=== PATIENT | female | born 1995 | race Two or more races ===

== ENCOUNTER 2021-11-11 08:12 | Observation (INO) | payer OTHER ==
[~2021-11-11] VITALS: Ht 157.5 cm; Wt 83.9 kg
== END 2021-11-11 11:48 | disposition home or self-care (01) ==
LOC: LDRP 08:12
PROVIDERS: ADMIT Obstetrics & Gynecology; ATTEND Obstetrics & Gynecology
DX: O99.333 Smoking (tobacco) complicating pregnancy, third trimester (principal); F17.200 Nicotine dependence, unspecified, uncomplicated; O09.33 Supervision of pregnancy with insufficient antenatal care, third trimester; Z3A.39 39 weeks gestation of pregnancy
CPT/HCPCS: 59025; 76818; 81002; 94760; G0378

== ENCOUNTER 2021-11-13 22:11 | Observation (INO) | payer SELFPAY ==
[~2021-11-13] VITALS: Ht 157.5 cm; Wt 98.0 kg
== END 2021-11-14 00:29 | disposition home or self-care (01) ==
LOC: LDRP 22:11
PROVIDERS: ADMIT Obstetrics & Gynecology Obstetrics; ATTEND Obstetrics & Gynecology Obstetrics
DX: O62.9 Abnormality of forces of labor, unspecified (principal); Z20.822 Contact with and (suspected) exposure to COVID-19; O26.893 Other specified pregnancy related conditions, third trimester; N89.8 Other specified noninflammatory disorders of vagina; O99.333 Smoking (tobacco) complicating pregnancy, third trimester; F17.210 Nicotine dependence, cigarettes, uncomplicated; Z3A.39 39 weeks gestation of pregnancy
CPT/HCPCS: 59025; 81002; G0378

== ENCOUNTER 2021-11-14 15:18 | Inpatient (IN) | payer SELFPAY ==
[~2021-11-14] VITALS: Ht 157.5 cm; Wt 98.0 kg
[2021-11-14] MEDS ORDERED: PROMETHAZINE HCL 25 MG/ML 1ML IV PRN (17:15)
[2021-11-14] MEDS ORDERED: LIDOCAINE 2%HCL (LOCAL ANESTH.) INJ 10ml MDV IJ PRN (17:15)
[2021-11-14] MEDS ORDERED: BUTORPHANOL TARTRATE 2 MG/1 ML VIAL IV PRN ×2 (17:15)
[2021-11-14] MEDS ORDERED: LACTATED RINGER'S 1,000 ML IV SCH (17:15)
[2021-11-14] MEDS ORDERED: LACT. RINGERS/OXYTOCIN 20UNITS 500 ML IV ONE ×2 (17:15→17:45)
[2021-11-14] MEDS: PHISODERM TOP SOLN 240ML BTL TOP PRN (18:03)
[2021-11-14] MEDS: DERMOPLAST 60ML BOTTLE TOP PRN (18:03)
[2021-11-14] MEDS: WITCH HAZEL-GLYCERIN PAD TOP PRN (18:03)
[2021-11-14] MEDS ORDERED: LIDOCAINE 2%HCL (LOCAL ANESTH.) INJ 20ML MDV ONE (18:06)
[2021-11-14 18:14] LABS: Alcohol, Urine < 3.0 mg/dL (0-10); Amphetamine Screen, Urine NEGATIVE (NEGATIVE); Barbiturate Scree,Urine NEGATIVE (NEGATIVE); Benzodiazephine Screen, Urine NEGATIVE (NEGATIVE); Cannabinoid Screen, Urine NEGATIVE (NEGATIVE); Cocaine Screen, Urine NEGATIVE (NEGATIVE); Opiate Scree,Urine NEGATIVE (NEGATIVE); Phencyclidine Screen, Urine NEGATIVE (NEGATIVE); Urine Bacteria FEW /hpf (None Seen); Urine Blood Negative /uL (Negative); Urine Specific Gravity 1.003 (1.001-1.035); Urine WBC <1 /hpf (0 - 5)
[2021-11-14 18:15] LABS: Basophils # (auto) 0.1 10 ^3/uL (0-0.2); Basophils % (auto) 0.4 % (0.0-2.0); Eosinophils # (auto) 0.1 10 ^3/uL (0-0.8); Eosinophils % (auto) 0.7 % (0.0-7.0); Hematocrit 33.8 % (36.0-46.0); Hemoglobin 11.4 g/dL (12.2-16.2); Lymphocytes # (auto) 1.7 10 ^3/uL (0.4-5.4); Lymphocytes % (auto) 11.5 % (10.0-50.0); Mean Corpuscular Hemoglobin 29.6 pg (28.0-32.0); Mean Corpuscular Hgb Conc. 33.9 g/dL (32.0-36.0); Mean Corpuscular Volume 87.3 fL (80.0-100.0); Monocytes # (auto) 0.8 10 ^3/uL (0-1.3); Monocytes % (auto) 5.1 % (0.0-12.0); Neutrophils # (auto) 12.5 10 ^3/uL (1.6-8.6); Neutrophils % (auto) 82.3 % (37.0-80.0); Red Blood Cells 3.87 10^6/uL (4.0-5.20); Red Cell Distribution Width 12.4 % (11.8-14.3); White Blood Cell 15.2 10^3/uL (4.4-10.8)
[2021-11-14 18:36] LABS: INR 0.92 (0.9-1.15); Partial Thromboplastin Time 26.2 sec (24.6-33.4)
[2021-11-14 18:46] LABS: Albumin 2.6 g/dL (3.4-5.0); Calcium 9.1 mg/dL (8.5-10.1); Potassium 3.7 mmol/L (3.5-5.1)
[2021-11-14 18:50] LABS: BUN/Creatinine Ratio 13.5; Bilirubin, Total 0.5 mg/dL (0.2-1.0); Total Protein 7.1 g/dL (6.4-8.2)
[2021-11-14] MEDS ORDERED: fentaNYL CITRATE 100 MCG/2 ML VL IV ONE (19:30)
[2021-11-14] MEDS ORDERED: NALOXONE HCL 0.4 MG/ML VIAL IV ONE (19:30)
[2021-11-14] MEDS ORDERED: ePHEDrine SULFATE 50 MG/ML AMP IV ONE (19:30)
[2021-11-14] MEDS ORDERED: LIDOCAINE HCL 2 %PF INJ 10ML AMP IJ ONE (19:30)
[2021-11-14] MEDS ORDERED: ROPIVACAINE HCL 200 ML EPI SCH ×2 (19:30→20:45)
[2021-11-14] MEDS ORDERED: OXYTOCIN 20 UNT in SODIUM CHLORIDE 0.9% 1,000 ML IV ONE (21:00)
[2021-11-14] MEDS ORDERED: LACT. RINGERS/OXYTOCIN 20UNITS 1,000 ML IV SCH (22:15)
[2021-11-14] MEDS ORDERED: TERBUTALINE SULFATE 1 MG/ML 1ML VIAL SC PRN (22:15)
[2021-11-15] MEDS ORDERED: ONDANSETRON ODT 4 MG TAB PO PRN (00:45)
[2021-11-15] MEDS ORDERED: ACETAMINOPHEN 325 MG TAB PO PRN (00:45)
[2021-11-15 03:00] VITALS: BP 124/77
[2021-11-15 06:06] LABS: RPR Non Reactive (Non Reactive)
[2021-11-15 07:00] VITALS: BP 115/68
[2021-11-15] MEDS: IBUPROFEN 600 MG TAB PO PRN ×3 (08:06→22:38)
[2021-11-15 10:57] VITALS: BP 104/59
[2021-11-15 15:23] VITALS: BP 106/61
[2021-11-15 19:30] VITALS: BP 100/66
[2021-11-15] MEDS ORDERED: DOCUSATE SOD 100 MG CAP PO SCH (22:00)
[2021-11-15 22:53] VITALS: BP 108/68
[2021-11-16 03:00] VITALS: BP 87/50
[2021-11-16 06:00] VITALS: BP 105/65
[2021-11-16 07:00] VITALS: BP 105/78
[2021-11-16] MEDS: PHISODERM TOP SOLN 240ML BTL TOP PRN (07:15)
[2021-11-16] MEDS: WITCH HAZEL-GLYCERIN PAD TOP PRN (07:15)
[2021-11-16] MEDS: IBUPROFEN 600 MG TAB PO PRN (07:15)
[2021-11-16] MEDS: DERMOPLAST 60ML BOTTLE TOP PRN (07:15)
== END 2021-11-16 10:37 | disposition home or self-care (01) | DRG 807 ==
LOC: LDRP 15:18 → OBSVTOIN 17:06 → LDRP 17:10
PROVIDERS: ADMIT Obstetrics & Gynecology; ATTEND Obstetrics & Gynecology
PROC: 10E0XZZ Delivery of Products of Conception, External Approach (ICD-10-PCS; principal; 2021-11-15)
PROC: 0KQM0ZZ Repair Perineum Muscle, Open Approach (ICD-10-PCS; 2021-11-15)
PROC: 3E0R3BZ Introduction of Anesthetic Agent into Spinal Canal, Percutaneous Approach (ICD-10-PCS; 2021-11-15)
PROC: 00HU33Z Insertion of Infusion Device into Spinal Canal, Percutaneous Approach (ICD-10-PCS; 2021-11-15)
PROC: 10907ZC Drainage of Amniotic Fluid, Therapeutic from Products of Conception, Via Natural or Artificial Opening (ICD-10-PCS; 2021-11-15)
DX: O70.1 Second degree perineal laceration during delivery (principal); Z37.0 Single live birth; Z3A.39 39 weeks gestation of pregnancy; Z20.822 Contact with and (suspected) exposure to COVID-19
CPT/HCPCS: 36415; 59025; 59409; 62282; 80053; 80307; 81001; 81002; 85025; 85610; 85730; 86592; 86850; 86900; 86901; 94760; 96360; 96361; 96365; 96366; 96374; G0378; J2590